=== PATIENT | male | born 1950 | race Caucasian/White ===

== ENCOUNTER 2017-11-12 07:18 | Day surgery (SDC) | payer BC, MEDICARE ==
--- NOTE | 2017-11-05 16:26 | HP ---
CC: Dr. Jani Tobias * PREOPERATIVE HISTORY AND PHYSICAL: DATE OF ADMISSION: Patient is scheduled for same-day surgery admission by Dr. Dunbar on 11/12/17. DATE OF PREOPERATIVE HISTORY AND PHYSICAL EXAMINATION: 11/05/17. ATTENDING SURGEON: Dr. Juan Dunbar * (dictated by Kelsey Venegas NP) CHIEF COMPLAINT: Gallstones and abdominal pain. HISTORY OF PRESENT ILLNESS: The patient is a 67-year-old male known to Dr. Dunbar over the past several years for evaluation of epigastric and right- sided abdominal pain. He underwent an ultrasound and a CAT scan of the abdomen and pelvis in 2014; both of these studies showed gallstones without acute cholecystitis or other acute findings. When Dr. Dunbar had seen him during this period, his symptoms were not interfering with his lifestyle or bothering him significantly and he decided to put off surgery. His laboratory workup at that time was also unremarkable. Currently, he describes more recent episodes of pain in the mid abdomen and slightly to the right; the pain comes on after eating large meals. He has no chest pain. He does not have any back pain. He denies any reflux-type symptoms. He had a recent laboratory workup at Dr. Tobias's office, which revealed normal total bilirubin, normal liver transaminases as well as normal alkaline phosphatase and a normal white blood cell count. Because the patient is having more recent episodes of abdominal discomfort, he wishes to proceed with laparoscopic cholecystectomy. Dr. Dunbar discussed the nature of the surgical procedure, the rationale for the procedure, the relevant risks and benefits, and today I reviewed typical postoperative care and recovery. The patient has had a chance to ask questions and stated that he understands the information and is satisfied with the answers given to his questions. He will sign surgical consent on the day of surgery. He is currently on a low-fat diet. PAST MEDICAL HISTORY: Hypertension and hyperlipidemia. PAST SURGICAL HISTORY: Tonsillectomy and lithotripsy procedure. MEDICATIONS: 1. Atorvastatin 10 mg daily in the morning. 2. Lisinopril 20 mg daily in the morning. ALLERGIES: No known drug allergies. FAMILY HISTORY: No known anesthesia complications, bleeding tendencies, or clotting disorders. SOCIAL HISTORY: He is and is retired from sales; he has never been a smoker. He drinks alcohol socially. He denies the use of other substances and exercises regularly. REVIEW OF SYSTEMS: Constitutional: No fevers, chills, excessive fatigue, or weight loss. HEENT: No scleral icterus. Endocrine: No diabetes or thyroid disease. Hematologic: No easy bruising or bleeding. No history of blood transfusions. Respiratory: No dyspnea on exertion. No chronic cough. Cardiovascular: No anginal chest pain or palpitations; he reports a history of phlebitis in one of the lower extremities many years ago, but was never treated with an anticoagulant. Gastrointestinal: As described in history of present illness. No change in the color of stool. Genitourinary: No dysuria. No change in the color of urine. He does have a history of kidney stones and is status post lithotripsy about 5 years ago. Musculoskeletal: No complaints of joint or back pain. Neurologic: No complaints of headache, blurred vision. No areas of focal weakness. General: No previous anesthesia complications. No history of deep vein thrombosis or pulmonary embolism, but as previously mentioned had phlebitis in the lower extremities. PHYSICAL EXAMINATION GENERAL SURVEY: The patient is a 67-year-old male, well developed, well nourished, in no acute distress. VITAL SIGNS: Height 69 inches, weight 196 pounds, body mass index 28.9. Blood pressure 124/64, pulse 64 and regular, respiratory rate 16, temperature tympanic. HEENT: Benign. Anicteric sclerae. NECK: Supple. No cervical lymphadenopathy. LUNGS: Breath sounds bilaterally clear and equal. HEART: Regular rate and rhythm. No murmurs or rubs appreciated. ABDOMEN: Active bowel sounds. Soft, protuberant. Mildly tender in the right upper quadrant. No guarding. No obvious masses or organomegaly. There is a small umbilical hernia, asymptomatic. GENITALIA: Exam deferred. RECTAL: Exam deferred. EXTREMITIES: Warm without edema or skin ulceration. NEUROLOGIC: Alert and oriented x3. Steady gait. SKIN: Warm, dry, anicteric. IMPRESSION: Symptomatic cholelithiasis. PLAN: Same-day surgery admission to Dr. Dunbar's service on 11/12/17 , for laparoscopic cholecystectomy. KAR VENEGAS, PROPERTY FIELD INSPECTOR [id number]/[facility] #: [id number] SUKHDEEP
[~2017-11-12 07:18] MED LIST: Acetaminophen TAB* 325 MG PO ONE; Buffered Lidocaine 0.9% SYRIN* 5 ML/SYR SYRINGE INTRADERM ONE; Dexamethasone IV* 4 MG/ML 1 ML (4 MG) IV SLOW PU ONE; Famotidine IV* 10 MG/ML 2 ML (20 mg) IV ONE
[2017-11-12] MEDS ORDERED: Heparin VIAL(*) 5000 UNITS/ML VIAL (FIVE THOUSAND) ONE (07:21)
[2017-11-12] MEDS ORDERED: Famotidine IV* 10 MG/ML 2 ML (20 mg) ONE (07:21)
[2017-11-12] MEDS ORDERED: ceFAZolin 2 GM PREMIX (*) 2 GM/50 ML BAG IVPB ONE (07:22)
[2017-11-12] MEDS ORDERED: Buffered Lidocaine 0.9% SYRIN* 5 ML/SYR SYRINGE ONE (07:22)
[2017-11-12] MEDS ORDERED: Acetaminophen TAB* 325 MG ONE (07:22)
[2017-11-12] MEDS ORDERED: Dexamethasone IV* 4 MG/ML 1 ML (4 MG) ONE (07:22)
[2017-11-12] MEDS ORDERED: fentaNYL* 50 MCG/ML 2 ML VIAL (100 MCG VIAL) ONE (08:21)
[2017-11-12] MEDS ORDERED: Propofol* 10 MG/ML 20 ML BTL IV PUSH ONE (08:21)
[2017-11-12] MEDS ORDERED: Midazolam* 1 MG/ML 2 ML VIAL (2 MG) ONE (08:21)
[2017-11-12] MEDS ORDERED: Lidocaine 2% PF * 5 ML VIAL ONE (08:26)
[2017-11-12] MEDS ORDERED: fentaNYL* 50 MCG/ML 2 ML VIAL (100 MCG VIAL) IV PRN (09:09)
[2017-11-12] MEDS ORDERED: HYDROmorphone INJ* 1 MG/ML CARPUJECT SYRINGE IV PRN (09:09)
[2017-11-12] MEDS ORDERED: Naloxone* 0.4 MG/ML 1 ML VIAL IV PRN (09:09)
[2017-11-12] MEDS ORDERED: Ondansetron INJ* 2 MG/ML VIAL IV PRN (09:09)
[2017-11-12] MEDS ORDERED: oxyCODONE/Acetamin 5/325 MG* TAB PO PRN ×2 (09:09→10:52)
[2017-11-12] MEDS ORDERED: Scopolamine 1.5 mg* PATCH TRANSDERM PRN (09:09)
[2017-11-12] MEDS ORDERED: oxyCODONE TAB* 5 MG TAB PO PRN (09:09)
[2017-11-12] MEDS ORDERED: Bupivacaine 0.25% SDV* 30 ML ONE (09:15)
[2017-11-12] MEDS ORDERED: Sugammadex * 200 MG/2 ML VIAL IV PUSH ONE (09:19)
[2017-11-12] MEDS ORDERED: Rocuronium* 10 MG/ML VIAL ONE (09:19)
[2017-11-12] MEDS ORDERED: Ketorolac INJ* 30 MG/ML 1 ML VIAL ONE (09:51)
[2017-11-12] MEDS ORDERED: Ondansetron INJ* 2 MG/ML VIAL ONE (09:51)
[2017-11-12] MEDS ORDERED: oxyCODONE TAB* 5 MG TAB ONE (11:32)
[2017-11-12 12:34] VITALS: BP 118/77
--- NOTE | 2017-11-13 04:05 | OP ---
CC: Dr. Jani Tobias * DATE OF OPERATION: 11/12/17 - [facility] DATE OF : 50 SURGEON: Juan Dunbar MD MAT MACHINE TENDER: ANI Jacobson ANESTHESIOLOGIST: Dr. Christine Jacob. ANESTHESIA: General with local. PRE-OP DIAGNOSES: Right upper quadrant abdominal pain and cholelithiasis. POST-OP DIAGNOSES: Right upper quadrant abdominal pain and cholelithiasis. OPERATIVE PROCEDURE: Laparoscopic cholecystectomy. ESTIMATED BLOOD LOSS: Minimal. WOUND CLASSIFICATION: II. COMPLICATIONS: None. DRAINS: None. SPECIMENS: Gallbladder with contained gallstones. DESCRIPTION OF PROCEDURE: Written informed consent was obtained, the abdomen was marked with indelible ink, and preoperative antibiotics were administered. The patient was taken to the operating room, placed in the supine position. Sequential compression devices were placed on the lower extremities and a warming blanket was applied. General anesthesia was administered and the abdomen was prepped and draped in the usual sterile fashion. Time-out verification was completed. Initially, a small transverse incision was made just above the umbilicus and the peritoneal cavity was entered under direct vision. A 12 mm port was then placed and the abdomen was insufflated to 15 mmHg. Under direct vision, an 11-mm epigastric port was placed and two 5-mm ports were placed in the right side of the abdominal wall. The liver appeared to be normal. There were some omental adhesions to the gallbladder, which was slightly thickened and it had a layer of fat adherent to it. This appeared to be possibly consistent with previous chronic inflammation. The gallbladder was grasped and elevated up over the liver bed and the omental adhesions were taken down sharply. There was thickened fat down the infundibular area and this was taken down, moving along the medial and lateral aspects of the gallbladder and with care I was able to identify the cystic duct and artery as they entered the gallbladder. I took a considerable portion of the inferior part of the gallbladder off the liver bed using the critical view technique to assure myself of this anatomy. There were several stones almost right down at the neck and at the proximal portion of the cystic duct and I was able to milk these back up into the gallbladder and the cystic duct appeared to be of normal caliber. The cystic duct and artery were then doubly clipped and divided. The gallbladder was removed from the liver bed using cautery and placed in EndoCatch bag and brought out through the umbilical incision. Hemostasis was assured along the gallbladder bed. All ports were removed under direct vision of the camera. There was no abdominal wall bleeding. The umbilical fascia was closed with interrupted 0 Polysorb suture. The incisions were closed with subcuticular 4-0 Polysorb suture. Steri-Strips were applied. The patient tolerated the procedure well, was taken to the recovery room in stable condition. [id number]/[facility] #: [id number] [facility] CENTER[facility]filo
[2017-11-15] MEDS ORDERED: Scopolamine PATCH Remove* 1 NOTE MISC PATCH OFF ONE (09:11)
== END 2017-11-12 12:55 | disposition home or self-care (01) ==
LOC: OR 07:18
PROVIDERS: ATTEND Surgery
DX: K80.10 Calculus of gallbladder with chronic cholecystitis without obstruction (principal); I10 Essential (primary) hypertension; E78.5 Hyperlipidemia, unspecified; Z68.29 Body mass index [BMI] 29.0-29.9, adult
CPT/HCPCS: 88304; A9270-GY; J0690; J1100; J1644; J1885; J2250; J2405; J2704; J3010